=== PATIENT | male | born 1970 | race Caucasian/White ===

== ENCOUNTER 2017-09-20 18:11 | Emergency (ER) | payer OTHER ==
[2017-09-20 18:34] VITALS: RESP 16; O2SAT 98
[2017-09-20 18:45] VITALS: BP 112/76; PULSE 81; TEMP 96.7
--- NOTE | 2017-09-20 19:24 | ED PDOC ---
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 Denied any loss of consciousness, head or bodily injuries. Patient stated he initially did not feel pain when he fell but pain increased today when he woke up. He reported taking Advil for pain but only has temporary relief. PMD: none provided Past Medical History Reviewed: Historical Data, Nursing Documentation, Vital Signs Vital Signs: Last Vital Signs Temp 96.7 F L 09/20/17 18:44 Pulse 81 09/20/17 18:44 Resp 16 09/20/17 18:44 BP 112/76 09/20/17 18:44 Pulse Ox 98 09/20/17 19:36 - Family History Family History: States: Unknown Family Hx - Home Medications Home Medications: Ambulatory Orders Medication Instructions Recorded Acetaminophen with Codeine 1 tab PO Q8 #10 tab 09/06/14 [Tylenol with Codeine No. 3 300 mg-30 mg] Penicillin V Potassium [Pen-Vee K] 500 mg PO Q6 #40 tab 09/06/14 traMADol [Ultram] 50 mg PO Q4 #10 tab 02/28/15 Azithromycin [Zithromax Z-Giovani] 250 mg PO DAILY #6 tab 06/06/15 Phenyleph HCl/Promethazine H 5 ml PO Q12 PRN #100 ml 06/06/15 [Phenergan Vc 5 mg/5 ml-6.25 mg/5 ml 480 ml] Azithromycin [Zithromax Z-Giovani] 250 mg PO DAILY #1 packet 11/12/15 Benzonatate [Tessalon Perles] 200 mg PO Q8H PRN #30 tab 11/12/15 Cyclobenzaprine [Cyclobenzaprine 10 mg PO BID #15 tab 09/20/17 HCl] Ibuprofen [Motrin Tab] 600 mg PO Q6 #30 tab 09/20/17 - Allergies Allergies/Adverse Reactions: Allergies Allergy/AdvReac Type Severity Reaction Status Date / Time No Known Allergies Allergy Verified 11/12/15 18:35 Review of Systems ROS Statement: Except As Marked, All Systems Reviewed And Found Negative Cardiovascular: Positive for: Chest Pain (left-sided ribs) Respiratory: Negative for: Shortness of Breath Neurological: Negative for: Other (head injury or LOC) Physical Exam - Reviewed Nursing Documentation Reviewed: Yes Vital Signs Reviewed: Yes - Physical Exam Appears: Positive for: Well, Non-toxic, No Acute Distress Head Exam: Positive for: ATRAUMATIC, NORMAL INSPECTION, NORMOCEPHALIC Skin: Positive for: Normal Color Eye Exam: Positive for: Normal appearance ENT: Positive for: Normal ENT Inspection Neck: Positive for: Normal, Painless ROM, Supple. Negative for: Decreased ROM Cardiovascular/Chest: Positive for: Regular Rate, Rhythm, Other (4th-5th rib point tenderness). Negative for: Chest Non Tender (or crepitus/stepoff/ ecchymosis) Respiratory: Positive for: Normal Breath Sounds. Negative for: Decreased Breath Sounds, Accessory Muscle Use, Respiratory Distress Back: Positive for: Normal Inspection. Negative for: L CVA Tenderness, R CVA Tenderness Extremity: Positive for: Normal ROM. Negative for: Tenderness, Pedal Edema, Deformity, Swelling Neurologic/Psych: Positive for: Alert, Oriented - ECG O2 Sat by Pulse Oximetry: 98 (RA) Pulse Ox Interpretation: Normal Medical Decision Making Medical Decision Making: Initial Impression: Rib contusion Initial Plan: * Flexeril 10mg PO * Motrin 600mg PO * Xray ribs (left) Xrays appeared negative. PT. able to take deep breaths, not splinting, does not require incentive spirometer at this time. Return precautions given. Scribe Attestation: Documented by Daisha Duff, acting as a scribe for Kishor Burgess MD. Provider Scribe Attestation: All medical record entries made by the Scribe were at my direction and personally dictated by me. I have reviewed the chart and agree that the record accurately reflects my personal performance of the history, physical exam, medical decision making, and the department course for this patient. I have also personally directed, reviewed, and agree with the discharge instructions and disposition. Disposition - Clinical Impression Clinical Impression: Rib contusion - Disposition Disposition: Routine/Home Disposition Time: 20:30 Condition: IMPROVED Prescriptions: Cyclobenzaprine [Cyclobenzaprine HCl] 10 mg PO BID #15 tab Ibuprofen [Motrin Tab] 600 mg PO Q6 #30 tab Instructions: Rib Contusion (ED) Forms: [employer] (Spanish)
--- NOTE | 2017-09-21 10:22 | RAD ---
PROCEDURE: Radiographs of the Chest and Left Ribs. HISTORY: s/p fall yesterday COMPARISON: None available. TECHNIQUE: Frontal radiograph of the chest and multiple oblique radiographs of the left ribs were obtained. FINDINGS: LEFT RIBS: No acute fracture or focal lesion visualized. LUNGS: The lungs are well inflated and clear. PLEURA: No pneumothorax or pleural fluid. CARDIOVASCULAR: Normal sized heart. No pulmonary vascular congestion. OTHER FINDINGS: None. IMPRESSION: No acute rib fracture. Clear lungs.
== END 2017-09-20 20:13 | disposition home or self-care (01) ==
LOC: H.ER 18:11
DX: S20.219A Contusion of unspecified front wall of thorax, initial encounter (principal); W19.XXXA Unspecified fall, initial encounter; Y99.0 Civilian activity done for income or pay